=== PATIENT | female | born 1980 | race Caucasian/White ===

== ENCOUNTER 2020-10-25 10:59 | Emergency (ER) | payer OTHER, SELFPAY ==
--- NOTE | 2020-10-25 11:29 | PC.NURSE ---
Visualized upon entry to ED. No acute distress. Called at 1125 for Triage, not in WR- ? Bathroom , will call again.
[2020-10-25 12:09] VITALS: BP 123/75; PULSE 76; RESP 14; TEMP 36.7; O2SAT 99; BMI 23.9
--- NOTE | 2020-10-25 12:15 | DI.US.S_ITS ---
PROCEDURE: US ABDOMEN LIMITED INDICATIONS: Right upper quadrant and right lower quadrant abdominal pain TECHNIQUE: Real-time focused scanning was performed of the abdomen, with image documentation. COMPARISON: None. FINDINGS: Normal sonographic appearance of the liver. No intrahepatic or extrahepatic biliary ductal dilatation. Normally distended gallbladder without wall thickening, pericholecystic fluid, sludge, or gallstone. Visualized portions of the pancreas are within normal limits. The appendix was not visualized upon interrogation of the right lower quadrant. IMPRESSION: Normal right upper quadrant abdominal ultrasound. Dictated by: Jeovany Calvin M.D. on 10/25/2020 at 12:54 Approved by: Jeovany Calvin M.D. on 10/25/2020 at 12:55
[2020-10-25 12:46] LABS: Alanine Aminotransferase 20 IU/L (<35); Albumin 4.6 g/dL (3.5-5.0); Albumin Globulin Ratio 1.6 (1.0-2.8); Alkaline Phosphatase 50 U/L (38-126); Aspartate Aminotransferase 23 IU/L (14-36); BUN Creatinine Ratio 18.6 (6-22); Bilirubin Total 0.3 mg/dL (0.2-1.3); Blood Urea Nitrogen 11 mg/dL (7-17); Calcium 9.6 mg/dL (8.4-10.2); Carbon Dioxide 26 mmol/L (22-32); Chloride 106 mmol/L (98-107); Estimated Glomerular Filt Rate > 60.0 mL/min (>60); Globulin 2.9 g/dL (1.7-4.1); Glucose 94 mg/dL (70-100); HEMOLYSIS < 15 (0-50); Lipase 81 U/L (23-300); Sodium 137 mmol/L (137-145); Total Protein 7.5 g/dL (6.3-8.2)
[2020-10-25 12:49] LABS: Add Manual Diff / Slide Review NO; Basophils Absolute Auto 0 /uL (0-100); Basophils Percent Auto 0.3 % (0-2); Eosinophils Absolute Auto 100 /uL (0-450); Eosinophils Percent Auto 1.1 % (2-4); Hematocrit 40.4 % (36-46); Hemoglobin 13.6 g/dL (12.0-16.0); Lymphocytes Absolute Auto 2400 /uL (1100-4500); Lymphocytes Percent Auto 26.1 % (25-40); Mean Corpuscular HGB Conc 33.5 % (30-36); Mean Corpuscular Hemoglobin 30.6 PG (26-34); Mean Corpuscular Volume 91.2 fL (80-100); Monocytes Absolute Auto 500 /uL (0-900); Monocytes Percent Auto 5.7 % (3-14); Neutrophils Absolute Auto 6300 /uL (1500-7000); Neutrophils Percent Auto 66.8 % (50-75); Platelet Count 331 X10^3/uL (150-400); Red Blood Cell Count 4.43 X10^6/uL (4.0-5.2); Red Cell Distribution Width 13.4 % (11.6-14.8); White Blood Cell Count 9.4 X10^3/uL (4.5-11.0)
--- NOTE | 2020-10-25 14:33 | ED_ITS ---
HPI - Abdominal Pain General Chief Complaint: Abdominal Pain Stated Complaint: abdominal pain for a week, spreading today Time Seen by Provider: 10/25/20 12:35 Source: patient Mode of arrival: Ambulatory Limitations: no limitations History of Present Illness HPI narrative: 40-year-old otherwise healthy young woman presents with right- sided upper abdominal pain that is been present for a week and increasing in intensity. She states that earlier in the week it would have waves of pain and then resolved but today it has been troublesome enough that she is noticing it all day long. She currently is on her menstrual cycle. She notes that they have been eating quite a bit over the last holiday weekend including quite a bit of soy protein meat products which is not something she usually does. She describes no fevers, cough, chills, palpitations, chest pain, rashes, flank pain, dysuria, vaginal discharge aside from usual menstrual flow. Related Data Allergies Allergy/AdvReac Type Severity Reaction Status Date / Time No Known Drug Allergies Allergy Verified 10/25/20 12:12 Patient History Social History Smoking Status: Never smoker Smoking Status: Never smoker alcohol intake frequency: 0-2 drinks per day Substance Use Type: does not use Exam Narrative Exam Narrative: General: Healthy appearing, in no acute distress. Able to give a complete and coherent history. Well-nourished well-developed HEENT: Moist mucous membranes, normal sclera with reactive pupils, Respiratory: Lungs are clear to auscultation, no wheezing no rales no rhonchi. Full and symmetrical air movement Cardiac: Regular rate and rhythm no murmurs no bruits Abdomen: Soft, mild tenderness in the mid right upper quadrant but not specifically over the gallbladder, epigastrium or pancreatic head. The tenderness migrates during the exam., good bowel tones, no flank pain Skin: Warm and dry, no rashes Neurologic: Grossly neurologically intact with no obvious asymmetries or abnormalities Extremities: No trauma, well perfused Psych: Cooperative, appropriate insight and affect Initial Vital Signs Initial Vital Signs: Vital Signs Temperature 98.1 F 10/25/20 12:09 Pulse Rate 76 10/25/20 12:09 Respiratory Rate 14 10/25/20 12:09 Blood Pressure 123/75 10/25/20 12:09 Pulse Oximetry 99 10/25/20 12:09 Course Orders Ordered: ED Orders 10/25/20 12:15 US abdomen limited Stat 10/25/20 12:27 Complete Blood Count AUTO DIFF Stat Comprehensive Metabolic Panel Stat Lipase Stat 10/25/20 14:33 Urine Microscopic Stat Vital Signs Vital signs: Vital Signs - 8 hr 10/25/20 12:09 Temperature 98.1 F Pulse Rate 76 Respiratory Rate 14 Blood Pressure 123/75 Pulse Oximetry 99 MDM - Abdominal Pain Lab Data Result diagrams: 10/25/20 12:27 10/25/20 12:27 Labs: Lab Results 10/25/20 10/25/20 Range/Units 12:27 12:27 WBC 9.4 (4.5-11.0) X10^3/uL RBC 4.43 (4.0-5.2) X10^6/uL Hgb 13.6 (12.0-16.0) g/dL Hct 40.4 (36-46) % MCV 91.2 (80-100) fL MCH 30.6 (26-34) PG MCHC 33.5 (30-36) % RDW 13.4 (11.6-14.8) % Plt Count 331 (150-400) X10^3/uL Neut % (Auto) 66.8 (50-75) % Lymph % (Auto) 26.1 (25-40) % [place] % (Auto) 5.7 (3-14) % Eos % (Auto) 1.1 L (2-4) % Baso % (Auto) 0.3 (0-2) % Neut # (Auto) 6300 (2318-1850) /uL Lymph # (Auto) 2400 (9644-1736) /uL [place] # (Auto) 500 (0-900) /uL Eos # (Auto) 100 (0-450) /uL Baso # (Auto) 0 (0-100) /uL Sodium 137 (137-145) mmol/L Potassium 4.0 (3.4-5.1) mmol/L Chloride 106 (98-107) mmol/L Carbon Dioxide 26 (22-32) mmol/L BUN 11 (7-17) mg/dL Creatinine 0.59 (0.52-1.04) mg/dL Estimated GFR > 60.0 (>60) mL/min BUN/Creatinine Ratio 18.6 (6-22) Glucose 94 (70-100) mg/dL Calcium 9.6 (8.4-10.2) mg/dL Total Bilirubin 0.3 (0.2-1.3) mg/dL AST 23 (14-36) IU/L ALT 20 (<35) IU/L Alkaline Phosphatase 50 (38-126) U/L Total Protein 7.5 (6.3-8.2) g/dL Albumin 4.6 (3.5-5.0) g/dL Globulin 2.9 (1.7-4.1) g/dL Albumin/Globulin Ratio 1.6 (1.0-2.8) Lipase 81 (23-300) U/L Point of care testing: Point of Care Testing Test Results Negative Urine Dip Bedside Urine Glucose Negative Bedside Urine Bilirubin - Negative Bedside Urine Ketone - Negative Urine Specific [place] 1.015 Bedside Urine Occult Blood +/- Bedside Urine pH 6 Bedside Urine Protein - Negative Bedside Urine Urobilinogen - Negative Bedside Urine Nitrite - Negative Bedside Urine Leukocytes - Negative Esterase Imaging Data US - abdomen: Radiologist's Impression: FINDINGS: Normal sonographic appearance of the liver. No intrahepatic or extrahepatic biliary ductal dilatation. Normally distended gallbladder without wall thickening, pericholecystic fluid, sludge, or gallstone. Visualized portions of the pancreas are within normal limits. The appendix was not visualized upon interrogation of the right lower quadrant. IMPRESSION: Normal right upper quadrant abdominal ultrasound. Dictated by: Jeovany Calvin M.D. on 10/25/2020 at 12:54 MDM Narrative Medical decision making narrative: Otherwise healthy 40-year-old woman with increasing nonspecific abdominal pain over the last week. Workup is not suggestive of any acute abdominal injury, cholecystitis or cholelithiasis, appen dicitis, reflux or bowel obstruction. No evidence of pulmonary infection. Reassurance is given. We discussed trying some type of bowel cleanse and seeing if this helps with the pain if not she is welcome to return for further evaluation. Questions are answered and she is safe for home discharge Discharge Plan Departure Patient Disposition: Home Clinical Impression: Abdominal pain Qualifiers: Abdominal location: upper abdomen, unspecified Qualified Code(s): R10.10 - Upper abdominal pain, unspecified Instructions: DI for Abdominal Pain-Adult Activity Restrictions/Additional Instructions: Thank you for coming in today Your blood work was very reassuring. There is no evidence of infection, anemia, kidney problems, electrolyte problems or acute pancreatitis. Your ultrasound was equally reassuring. Your liver, gallbladder and visualized portions of the pancreas were all normal. With the description of your pain I suspect that constipation is likely playing a part in this. I am going to suggest that you use what ever has been helpful before incompletely cleaning out your colon. Smooth move tea can be a wonderful laxative. If you find your having new or worsening symptoms please feel free to return to the ER Referrals: Kodi Singletary ARNP [Primary Care Provider] -
[2020-10-25 14:55] VITALS: BP 124/70; PULSE 76; RESP 16; TEMP 36.8; O2SAT 99
[2020-10-25 15:03] LABS: Bacteria Urine Occasional (0-1); Culture Indicated Urine Cult Not Indicated; RBC Urine 0-1/HPF (0-5/HPF); Squamous Epithelial Cell Urine 1-5 /HPF (0-5/HPF); WBC Urine 0-1/HPF (0-5/HPF)
== END 2020-10-25 14:55 | disposition home or self-care (01) ==
PROVIDERS: Emergency Medicine; Emergency Provider Emergency Medicine; PCP Registered Nurse Diabetes Educator
DX: R10.10 Upper abdominal pain, unspecified (principal)
CPT/HCPCS: 36415; 76705; 80053; 81003; 81015; 81025; 83690; 85025; 99284

== ENCOUNTER 2023-11-26 13:22 | Day surgery (SDC) | payer OTHER, SELFPAY ==
[2023-11-26] MEDS: LACTATED RINGERS 1,000 ML 42 ML IV (13:39)
[2023-11-26 13:51] VITALS: BP 114/74; PULSE 68; RESP 16; TEMP 36.2; O2SAT 100
--- NOTE | 2023-11-26 14:09 | PM.HP.1 ---
History of Present Illness History of Present Illness Date Patient Seen: 11/26/23 Time Patient Seen: 14:09 Chief complaint: Colonoscopy Narrative: 43-year-old woman here for screening colonoscopy. No family history of colon cancer. She has occasional right-sided abdominal pain. [facility] Social History Smoking Status: Never smoker alcohol intake: current Meds Home Medications and Allergies Home Medications Medication Instructions Recorded Confirmed Type mg-arsl-gol-folic 400 mcg-inos 125 1 tab PO DAILY 11/26/23 11/26/23 History mg-choline 250 mg-PABA 35 mg tablet Allergies Allergy/AdvReac Type Severity Reaction Status Date / Time No Known Drug Allergies Allergy Verified 11/26/23 13:40 Exam Vital Signs (past 8 hours): - 11/26/23 13:51 Temperature 97.2 F L Pulse Rate 68 Respiratory Rate 16 Blood Pressure 114/74 Pulse Oximetry 100 Oxygen Delivery Method Room Air Oxygen Delivery Method Room Air Narrative Exam Narrative: General adult woman alert oriented no acute distress Chest nonlabored respiration Extremities warm well perfused Assessment & Plan Assessment & Plan narrative: The patient requires colorectal screening and colonoscopy is recommended. Technical details were discussed. Risks, benefits, alternatives explained. Risks including but not limited to myocardial infarction, aspiration, bleeding, pain, missed lesion, incomplete examination, need for further radiographic studies, intestinal injury, and need for major abdominal surgery were discussed. All questions were answered to their satisfaction, and they are in agreement with this plan. Time-Based Coding :: [TOTAL MINUTES] spent with patient and on the chart (including review of chart, obtaining history, exam, reviewing outside data, placing orders, documenting exam and treatment plan, and counseling patient) on [DATE].
[2023-11-26 14:42] VITALS: BP 88/57; PULSE 78; RESP 17; TEMP 36.3; O2SAT 96
[2023-11-26 14:46] VITALS: BP 94/61; PULSE 78; RESP 15; O2SAT 100
[2023-11-26 14:52] VITALS: BP 109/75; PULSE 77; RESP 19; TEMP 36.8; O2SAT 99
--- NOTE | 2023-11-26 14:56 | P.OP.COLON_ITS ---
Operative Date/Time/Diagnoses Date of procedure: 11/26/23 Time of procedure: 14:56 Pre-op diagnosis: Colorectal screening Procedure & Clinicians Study performed: Screening colonoscopy Same procedure as scheduled: Yes Indications: Colorectal screening Surgeon: Esteban Morrow Procedure Notes Procedure in detail: The history and physical was performed/updated and the patient is ASA class is 2. The procedure was discussed in detail with the patient. Potential risks co mplications including infection, bleeding, missed diagnosis, perforation, need for surgery, and were explained. Their questions were answered and informed consent was obtained. Patient was brought to the procedure room and placed standard monitoring equipment. The patient's vital signs were monitored continuously throughout the entire procedure. Prior to starting time-out was performed. The patient was placed in the left lateral recumbent position. Procedural sedation was administered by anesthesia. Examination began with a thorough inspection of the perianal area there was no evidence of fissures, fistulae, external hemorrhoids or cutaneous malignancy. The colonoscopy scope was then placed into the anal canal and was advanced to the cecum, which was identified by the ileocecal valve, the appendiceal orifice and the confluence of the taenia. The scope was then slowly withdrawn examining colon thoroughly in all directions, irrigating it of any residual stool. The scope was retroflexed within the rectum The patient tolerated the procedure well. They will be discharged once criteria are met. The prep was of good/excellent quality. The withdrawl time was 7 minutes. FINDINGS * Normal healthy colonic mucosa without mass or polyps. * Internal hemorrhoids Specimen(s): none sent Impression: Normal colonoscopy Post-procedure Recommendations: Colonoscopy in 10 years Disposition: same day surgery
== END 2023-11-26 15:11 | disposition home or self-care (01) ==
PROVIDERS: Referring Provider Surgery; Visit Provider Surgery
PROC: 0DJD8ZZ Inspection of Lower Intestinal Tract, Via Natural or Artificial Opening Endoscopic (ICD-10-PCS; CPT 45378; principal; 2023-11-26 14:15)
DX: Z12.11 Encounter for screening for malignant neoplasm of colon (principal); K64.8 Other hemorrhoids
CPT/HCPCS: 45378; 81025; J2704